=== PATIENT | male | born 1960 | race African-American/Black ===

== ENCOUNTER 2018-12-31 03:51 | Emergency (ER) | payer OTHER ==
[~2018-12-31] VITALS: Ht 175.3 cm; Wt 86.4 kg
[2018-12-31 04:10] VITALS: BP 144/92
== END 2018-12-31 06:51 | disposition home or self-care (01) ==
LOC: EMS 03:51
DX: F43.24 Adjustment disorder with disturbance of conduct (principal); F17.210 Nicotine dependence, cigarettes, uncomplicated; Z88.5 Allergy status to narcotic agent